=== PATIENT | male | born 2000 | race African-American/Black ===

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

== ENCOUNTER → 2020-01-19 15:00 | Outpatient (CLI) | payer MEDICAID ==
[2019-02-13 16:27] VITALS: BMI 17.7
[2020-01-20 06:11] LABS: RAPID PLASMA REAGIN Non Reactive (Non Reactive)
== END | disposition home or self-care (01) ==
LOC: D.LABREF 15:00
PROVIDERS: ATTEND Pediatrics
DX: Z72.51 High risk heterosexual behavior (principal)